=== PATIENT | female | born 1935 | race Caucasian/White ===

== ENCOUNTER 2017-06-12 07:33 | Inpatient (IN) ==
--- NOTE | 2017-06-11 21:27 | Discharge Summary ---
<Gayle Stewart - Last Filed: 06/12/17 11:22> Date of Encounter: 06/12/17 - Discharge Diagnosis (1) Arthritis of left hip Priority: Primary Status: Chronic (2) Status post total hip replacement, left Priority: Primary Status: Acute (3) Hypertension Status: Chronic Qualifiers: Hypertension type: unspecified secondary hypertension Qualified Code(s): I15.9 - Secondary hypertension, unspecified; I15 - Secondary hypertension (4) Hyperlipidemia Status: Chronic Qualifiers: Hyperlipidemia type: unspecified Qualified Code(s): E78.5 - Hyperlipidemia , unspecified (5) Diabetes type 2, controlled Status: Chronic Qualifiers: Diabetes mellitus complication status: with unspecified complications Diabetes mellitus terminal gauger insulin use: unspecified terminal gauger insulin use status Qualified Code(s): E11.8 - Type 2 diabetes mellitus with unspecified complications (6) Rheumatoid arthritis Status: Chronic Qualifiers: Rheumatoid arthritis location: unspecified site Rheumatoid factor presence : unspecified presence Qualified Code(s): M06.9 - Rheumatoid arthritis, unspecified (7) Obesity (BMI 30.0-34.9) Status: Chronic - Discharge Medications Home Medications: Aspirin Enteric Coated [Aspirin EC] 325 mg PO DAILY #21 tablet. 06/11/17 [Rx] OxyCODONE Immed Rel [Roxicodone 5 MG] 5 mg PO Q6HR PRN #28 tablet 06/11/17 [Rx] Cholecalciferol (D-3) [Vitamin D] 1,000 unit PO DAILY 06/12/17 [History] Cyanocobalamin (Vitamin B-12) [Vitamin B12] 1,000 mcg PO DAILY 06/12/17 [History ] GlipiZIDE [Glipizide ER] 10 mg PO DAILY 06/12/17 [History] Ibuprofen [Motrin] 400 mg PO Q6H PRN 06/12/17 [History] Losartan/HCTZ [Hyzaar 50-12.5 Tablet] 1 tab PO DAILY 06/12/17 [History] [place]-3/Dha/Epa/Fish Oil [Fish Oil 1,000 mg Softgel] 1 tab PO DAILY 06/12/17 [ History] Pyridoxine HCl [Vitamin B-6] 250 mg PO DAILY 06/12/17 [History] Allergies/Adverse Reactions: 3 Allergy/AdvReac Type Severity Reaction Status Date / Time acetaminophen [From Tylenol] Allergy Hives Verified 06/12/17 08:04 ezetimibe [From Zetia] Allergy Muscle Pain Verified 06/12/17 08:04 ibuprofen [From Advil] Allergy Hives Verified 06/12/17 08:04 Primary care physician: Niesha Brenner - Patient Status Disposition: Transfer Inpatient Rehab Fac Condition: Good - Discharge Instructions Instructions: Heart Block (GEN) Follow Up With: Jodie Posadas PAC [Physician Mobility Architect] - Олег Pulido MD [Partnered Physician] - Sawyer Ha DO [Primary Care Provider] - Additional Instructions: Discharge Instructions: Total Hip Replacement Please call [facility] ([phone]), your Primary Care Physician, or report to the Emergency Room if you have any of the following symptoms: Nausea, vomiting, fever greater that 101.5, swelling, chest pain, shortness of breath, increased pain/redness/drainage/odor for your incision site, numbness/ tingling, or any other concerning symptoms. ACTIVITY:Weight-bearing as tolerated for 8 weeks with hip dislocation precautions that physical therapy taught you. You may progress as tolerated under the guidance of your physical therapist. You do not need to sleep with a pillow between your legs. You can also seep on the operative side or on your stomach. MEDICATIONS: Upon discharge resume your home medications. Take all the medications as prescribed. Take a stool softener if taking narcotic pain medications. Stool softeners are only effective if you drink enough fluids. Drink 6-8 glass of water or fluids a day, unless this is not allowed for another health problem. Despite using stool softeners, if you haven't had a bowel movement in 3 days, please switch to a gentle laxative. Gentle laxatives are sold over the counter. You should have a bowel movement within 24 hours, if not call the office. You will be discharged from the hospital with a prescription for pain medication. You are encouraged to decrease the use of narcotic pain medication as tolerated. Should you require a refill, please call the office. [facility] prescribes narcotic pain medication for only 4-6 weeks after surgery. If you require pain medication beyond this time period, you may be referred to your Primary Care Physician or to the Pain Clinic for further evaluation. Plan ahead for refills on pain medication as many narcotics either need to be picked up at the office or mailed. It is best to call 48-72 hours in advance of needing a prescription refill so you don't run out of medication. To help control the post-operative pain, you may take NSAIDs (Aleve,Advil, Motrin, ibuprofen, naprosyn) or Tylenol as prescribed on the bottle in addition to the pain medication. ANTICOAGULATION (blood thinners): Continue your Aspirin, Lovenox or Coumadin as prescribed to help prevent a blood clot in the leg or in the lungs. As long as your incision remains dry and you tolerate the NSAIDs (Aleve, Advil, Motrin, Ibuprofen, Naprosyn), it is OK to use the NSAIDS while you are taking your anticoagulation medication. Should your incision start to drain, stop the NSAID and contact our office. Common symptoms of blood clot in the legs include: localized pain, swelling, calf tenderness, redness or discoloration of the skin. Blood clot in the lung symptoms include: shortness of breath, rapid pulse, sweating, and chest pain that worsens with deep breathing, coughing up blood, lightheadedness, feelings of anxiety. If you experience any of these symptoms notify your physician immediately, go to the emergency room, or if having trouble breathing, call 911. WOUND CARE: Leave the dressing on for 7 to 10days. You may change the dressing if it is saturated greater than 50%. Do not get the dressing wet at anytime. Wash your hands with antibacterial soap, rinse and dry prior to any wound care. If you have felton the visiting nurse or rehab facility can remove the stapes 10-14 days after surgery and place steri-strips across the wound. Leave the steri-strips in place until they fall off on their own. You may let water from the shower run on top of the steri-strips. If you do not have a visiting nurse or rehab facility, you will need to return to the office at 10-14 days for the felton to be removed. If you have itching or redness around the dressing call the office. FOLLOW-UP: Please follow up with your surgeon in the orthopedic clinic in 6 weeks from the day of surgery. If you have felton that need to be removed, you will need to come back to the office in 10-14 days from the day of surgery. - Hospital Course Hospital course: Ms. Glover is a 82 year old female - Time Spent with Patient Total time spent providing and/or coordinating discharge services: <Олег Pulido - Last Filed: 06/14/17 08:44> Date of Encounter: 06/14/17 Time of Encounter: 08:43 - Discharge Diagnosis (1) Arthritis of left hip Priority: Primary Status: Chronic (2) Status post total hip replacement, left Priority: Primary Status: Acute (3) Hypertension Priority: Secondary Status: Chronic Qualifiers: Hypertension type: unspecified secondary hypertension Qualified Code(s): I15.9 - Secondary hypertension, unspecified; I15 - Secondary hypertension (4) Hyperlipidemia Priority: Secondary Status: Chronic Qualifiers: Hyperlipidemia type: unspecified Qualified Code(s): E78.5 - Hyperlipidemia , unspecified (5) Diabetes type 2, controlled Priority: Secondary Status: Chronic Qualifiers: Diabetes mellitus complication status: with unspecified complications Diabetes mellitus terminal gauger insulin use: unspecified long-term insulin use status Qualified Code(s): E11.8 - Type 2 diabetes mellitus with unspecified complications (6) Rheumatoid arthritis Priority: Secondary Status: Chronic Qualifiers: Rheumatoid arthritis location: unspecified site Rheumatoid factor presence : unspecified presence Qualified Code(s): M06.9 - Rheumatoid arthritis, unspecified (7) Obesity (BMI 30.0-34.9) Priority: Secondary Status: Chronic (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 Glover is a 82 year old female Status post left total hip replacement patient with postoperative symptoms evaluated by cardiology diagnosed with rate control bundle kallie block. Echo normal further workup necessary The patient had an uneventful postoperative course. They received antibiotics and physical therapy and were discharged in stable condition. There will follow -up in the office in 2 weeks. - Time Spent with Patient Total time spent providing and/or coordinating discharge services:
[2017-06-12] MEDS ORDERED: CeFAZolin Syr 2,000MG/20 ML 2,000 MG/20 ML SYRINGE IVPB ONE (08:06)
[2017-06-12] MEDS ORDERED: Lidocaine -MPF 1% 2 ML VIAL ID ONE (08:06)
--- NOTE | 2017-06-12 08:11 | Anesthesia Evaluation PreOp ---
Date of Encounter: 06/12/17 Time of Encounter: 08:09 - Past History Planned Operation: Robotic Total hip Arthroplasty Cardiac History: HTN, Hyperlipidemia Pulmonary History: Denies Any Significant HX CARE CLINICIAN History: Denies Any Significant HX Other Medical History: Renal (Stones), Diabetes Type II, Other (RA) Anesthesia History: Past Anesthesia (LUISA, teeth extractions), Problems (slow to wake up 36 years ago) : No Alcohol Use: none Drug use: none Medications and Allergies Aspirin Enteric Coated [Aspirin EC] 325 mg PO DAILY #21 tablet.dr 06/11/17 [Rx] OxyCODONE Immed Rel [Roxicodone 5 MG] 5 mg PO Q6HR PRN #28 tablet 06/11/17 [Rx] Cholecalciferol (D-3) [Vitamin D] 1,000 unit PO DAILY 06/12/17 [History] Cyanocobalamin (Vitamin B-12) [Vitamin B12] 1,000 mcg PO DAILY 06/12/17 [History ] GlipiZIDE [Glipizide ER] 10 mg PO DAILY 06/12/17 [History] Ibuprofen [Motrin] 400 mg PO Q6H PRN 06/12/17 [History] Losartan/HCTZ [Hyzaar 50-12.5 Tablet] 1 tab PO DAILY 06/12/17 [History] [place]-3/Dha/Epa/Fish Oil [Fish Oil 1,000 mg Softgel] 1 tab PO DAILY 06/12/17 [ History] Pyridoxine HCl [Vitamin B-6] 250 mg PO DAILY 06/12/17 [History] 3 Allergy/AdvReac Type Severity Reaction Status Date / Time acetaminophen [From Tylenol] Allergy Hives Verified 06/12/17 08:04 ezetimibe [From Zetia] Allergy Muscle Pain Verified 06/12/17 08:04 ibuprofen [From Advil] Allergy Hives Verified 06/12/17 08:04 - Meds/Allergy Pre-op Review Medications Reviewed: Yes Allergies Reviewed: Yes Beta Blockers on Current Med List: No Anesthesia Results - Labs Laboratory Tests 05/24/17 05/24/17 05/24/17 15:12 15:12 15:12 WBC 8.6 Hgb 14.4 Hct 42.3 Plt Count 280 INR 1.0 Sodium 140 Potassium 3.8 Chloride 105 Carbon Dioxide 25 BUN 16 Creatinine 0.94 - Imaging EKG: report reviewed (SINUS RHYTHM WITH OCCASIONAL SUPRAVENTRICULAR PREMATURE COMPLEXES LEFT VENTRICULAR HYPERTROPHY AND ST-T CHANGE) Anesthesia Exam O2 Sat Height 1.57 m Height 1.57 m Weight 83.461 kg Weight 83.461 kg O2 Sat by Pulse Oximetry 96 Vital Signs Temp Pulse Resp BP Pulse Ox 98.0 F 91 18 133/68 96 06/12/17 08:01 06/12/17 08:01 06/12/17 08:01 06/12/17 08:01 06/12/17 08:01 Height: 5'2'' Weight: 184# NPO (# of Hours): > 8 hrs Pain Scale: 0 Pain Scale Used: Numeric (1 - 10) - HEENT Pupil (Motor): Pupils equal, EOMI Mallampati: I Teeth: Normal Oral Opening: Greater than 3 - CARE CLINICIAN LOC: Oriented CARE CLINICIAN Motor: Normal RUE, Normal LUE, Normal RLE, Normal LLE, Normal Face CARE CLINICIAN Sensory: Normal: RUE, LUE, RLE, LLE, Face - Cardiac Rhythm: Regular Murmur: None JVD: No Carotid Bruit: No - Pulmonary Breath Sounds: bilateral Clear Respiratory Effort: Symmetrical Anesthesia Assess/Plan ASA Score: 2 Modified [place] Scale for Level of Consciousness: Cooperative, oriented, and tranquil Anesthetic Plan: General Autologous Blood: Yes Monitoring Plan: Standard Monitors Recovery Plan: PACU
[2017-06-12] MEDS ORDERED: Plasma-Lyte A (PH 7.4) 1,000 ML IVC SCH (08:15)
--- NOTE | 2017-06-12 08:46 | History & Physical Report ---
Date of Encounter: 06/12/17 Time of Encounter: 08:46 24 Hour HP Update - Instructions Instructions: If the History and Physical is less than 30 days old and was completed prior to A.M. admission and or procedure and has NOT been updated on calendar day of procedure please complete this update prior to performing procedure. - Update Patient reports changes in Medical Condition: No Changes in examination, assessment, or condition: No Changes in Medication: No Preop tests/diagnostics Reviewed: Yes Surgery Remains Indicated: Yes Consent for Planned Operative Procedure(s) Verified: Yes - Pre-Operative Checklist Preoperative Checklist Indicated: No Prophylactic Antibiotic Ordered: Yes Is VTE Prophylaxis Indicated?: Yes
[2017-06-12] MEDS ORDERED: Ethanol\\Acetic Acid\\Na Ace\\Ben 1,000 ML IRRIG.SOLN IR ONE (09:13)
[2017-06-12] MEDS ORDERED: *HR* Succinylcholine 200 MG/10 ML VIAL IVP ONE (11:30)
[2017-06-12] MEDS ORDERED: *HR* Rocuronium Bromide 50 MG/5 ML VIAL ONE (11:30)
[2017-06-12] MEDS ORDERED: EPHEDrine 50 MG/ML VIAL ONE (11:30)
[2017-06-12] MEDS ORDERED: *HR* FentaNYL (PF) 100 MCG/2 ML VIAL ONE (11:30)
[2017-06-12] MEDS ORDERED: *HR* Propofol 200 MG/20 ML VIAL IVP ONE (11:30)
[2017-06-12] MEDS ORDERED: Lidocaine -MPF 2% 2 ML VIAL ONE (11:30)
[2017-06-12] MEDS ORDERED: Ondansetron 4 MG/2 ML VIAL ONE ×2 (11:31→14:52)
[2017-06-12] MEDS ORDERED: *HR* Morphine 10 MG/ML VIAL ONE (11:58)
--- NOTE | 2017-06-12 12:01 | Orthopedic Operative Note ---
Date of procedure: 06/12/17 Pre-op diagnosis: Left hip arthritis Post-op diagnosis: same Procedure: Procedure: Left Total Hip Replacment Estimated blood loss: 300 cc Hardware: Metal and polyethylene replacement. [place] DM Cup: 52 cup Femoral size 8 stem Head: 0 head with Darling Procedural Notes: Grade 4 arthritic changes femoral head acetabular socket, procedure performed with robotic assistance in the beginning, fiberoptic visualization was lost before reaming the acetabulum.. Operative procedure: The patient was brought to the operating room and placed on the operating room table. After general anesthesia was administered the patient was placed in the lateral decubitus position with the operative leg up. All pressure points were padded appropriately and the head was stabilized in the neutral position. The operative extremity was prepped and draped in the sterile surgical fashion patient received IV antibiotic prior to skin incision. 3 Steinmann pins were placed in the iliac crest 3 cm proximal to the anterior superior iliac spine this was for the robotic-assisted sensor. This was done through a small 2 cm incision. A standard posterior approach is made to the operative hip, the incision was made through the skin and subcutaneous tissue hemostasis was obtained with Bovie cautery. Using careful sharp dissection the fascia was identified and incised exposing the external rotators. The femoral checkpoint was placed leg length was measured at this time utilizing robotic assistance, 11 mm shorter on operative side. The external rotators were released off the greater trochanter and tagged with #2 FiberWire suture. The capsule was T'd open and the hip was brought into internal rotation. Patient noted to have grade 4 arthritic changes femoral head. The femoral neck cut was made at the appropriate level roughly 17 mm proximal to the lesser trochanter aced on preoperative templating. An anterior capsulotomy was performed for the anterior retractor. Soft tissues removed from the acetabulum. Patient noted to have grade 4 arthritic changes acetabulum. The acetabulum checkpoint was placed confirmed. The acetabulum was then mapped with robotic assistance. Based on the preoperative plan the acetabulum at this point fiberoptic visualization was lost from the robot due to technical error, the acetabular was reamed medially with a 43 then in 15 degrees of anteversion and 45 degrees off horizontal to a size 52. A 52 cup was implanted in place in 45 degrees off the horizontal and 15 degrees of anteversion and this had excellent fixation. The hip was brought back in to internal rotation and prepared with the box closing machine operator followed by the canal finder followed by the reaming process to a size X broaching process in 20 degrees anteversion. It was broached up to the appropriate size 8. Trial reduction revealed leg lengths close to normal. The femoral implant was impacted in place in 20 degrees of anteversion. Trial reduction found the hip to be stable with 0 head and Darling. The trials were removed and the real implants were impacted in place. The hip was reduced. The hip had excellent stability with forward flexion to 90 degrees adduction of 30 degrees and internal rotation of 60 degrees. The hip had no shuck. The hips after 2 minutes with a Betadine saline solution. It was irrigated out with 2 L of pulse irrigation. The checkpoints were removed, Steinmann pins were removed. The deep incision and of the hip were closed by the PA. The deep tissue was irrigated and closed deep with #1 PDS suture superficially with 0 PDS suture and skin was closed with Dermabond and zip tie. The patient was placed in a sterile dressing and abduction pillow. The patient was extubated and transferred to the recovery room in stable condition. Anesthesia: GETA Surgeon: Олег Pulido Condition: stable Disposition: PACU
[2017-06-12] MEDS ORDERED: Ondansetron 4 MG/2 ML VIAL IVP PRN ×2 (12:41→14:45)
[2017-06-12] MEDS ORDERED: *HR* HYDROmorphone (PF) 1 MG/ML SYRINGE ONE (12:42)
[2017-06-12] MEDS: *HR* HYDROmorphone (PF) 1 MG/ML SYRINGE IVP PRN ×3 (12:43→13:01)
[2017-06-12 12:52] LABS: Hemoglobin 11.2 g/dL (11.5-15.4)
[2017-06-12] MEDS ORDERED: *HR* Morphine 2 MG/ML SYRINGE ONE (13:57)
--- NOTE | 2017-06-12 14:11 | Anesthesia Evaluation Post Op ---
Date of Encounter: 06/12/17 Time of Encounter: 14:10 - Vital Signs Vital Signs: Vital Signs/O2 Sat, Most Current Temp Pulse Resp BP Pulse Ox 98 F 71 12 119/61 100 06/12/17 14:05 06/12/17 14:05 06/12/17 14:05 06/12/17 14:05 06/12/17 14:05 - Lungs Lungs: Clear Ascult./Percussion - Airway Airway: Non-obstructed - Cardiovascular Regular Rate - Mental Status Mental Status: Alert & Oriented, Answers Appropriately - Pain Pain Scale: 6 (sleeping) Pain Scale used: Numeric (1 - 10) - Nausea Vomiting Nausea Vomiting: Not Present - Hydration Hydration: Ice chips, Has not voided - Discharge PostOp Status: Transfer Patient to floor
--- NOTE | 2017-06-12 14:20 | Cardiology Consult Note ---
<RamonitaLvy R - Last Filed: 06/12/17 14:17> Date of Encounter: 06/12/17 Time of Encounter: 14:18 Assessment and Plan (1) Rate-dependent bundle branch block Current Visit: Yes Status: Acute Explanation for differing complexes on telemetry is rate dependent LBBB s/p hip replacement. Pt denies cardiac hx or any current cardiac symptoms. Risk factors include HTN, HLD, DM. Recommend checking troponin x 3 and an echo to evaluate structure and function. If no significant findings, no further cardiac work-up will be warranted. Will continue to follow. Discussion w patient/family: The assessment and plan as outlined above was discussed with the patient and/or family members who expressed understanding and agreement. All questions were answered. Thank you for involving us in the care of your patient. Please call with any questions. I will discuss all the above with Dr. Adams and make changes as necessary. History of Present Illness Consult date: 06/12/17 Requesting physician: Roscoe Ramirez Consult reason: telemetry/ekg changes Chief complaint: none History of present illness: Ms. Glover is a 82 year old female with PMH of HTN, HLD, DM that is post op from left hip replacement today. Changes were noted on telemetry/EKG and cardiology was asked to assess the pt. She is currently A&O x 1 due to still being somewhat sedated. However, she denies any cardiac history or currently symptoms of chest pain or dyspnea. EKG/telemetry shows rate dependent LBBB. No previous cardiac testing on file aside from EKG. Past Med Surg Social Fam HX - Past Medical History Medical history: diabetes, hyperlipidemia, hypertension Psychiatric history: no psych history - Social History Smoking Status: Never smoker Smokeless Tobacco Status: No Alcohol use: none Drug use: none Medications and Allergies Aspirin Enteric Coated [Aspirin EC] 325 mg PO DAILY #21 tablet. 06/11/17 [Rx] OxyCODONE Immed Rel [Roxicodone 5 MG] 5 mg PO Q6HR PRN #28 tablet 06/11/17 [Rx] Cholecalciferol (D-3) [Vitamin D] 1,000 unit PO DAILY 06/12/17 [History] Cyanocobalamin (Vitamin B-12) [Vitamin B12] 1,000 mcg PO DAILY 06/12/17 [History ] GlipiZIDE [Glipizide ER] 10 mg PO DAILY 06/12/17 [History] Ibuprofen [Motrin] 400 mg PO Q6H PRN 06/12/17 [History] Losartan/HCTZ [Hyzaar 50-12.5 Tablet] 1 tab PO DAILY 06/12/17 [History] [place]-3/Dha/Epa/Fish Oil [Fish Oil 1,000 mg Softgel] 1 tab PO DAILY 06/12/17 [ History] Pyridoxine HCl [Vitamin B-6] 250 mg PO DAILY 06/12/17 [History] 3 Allergy/AdvReac Type Severity Reaction Status Date / Time acetaminophen [From Tylenol] Allergy Hives Verified 06/12/17 08:04 ezetimibe [From Zetia] Allergy Muscle Pain Verified 06/12/17 08:04 ibuprofen [From Advil] Allergy Hives Verified 06/12/17 08:04 All Systems Review: A 10-system review of systems was performed and is negative for pertinent findings except as documented above in the HPI. - Cardiovascular Cardiovascular: as per HPI Physical Examination Vital Signs, Last 4 Hours Temp Pulse Resp BP Pulse Ox 06/12/17 14:15 66 12 133/64 100 06/12/17 14:05 98 F 71 12 119/61 100 06/12/17 13:55 69 12 131/68 100 06/12/17 13:45 85 12 126/72 99 06/12/17 13:35 97.2 F L 82 10 129/71 99 06/12/17 13:25 65 10 126/66 94 06/12/17 13:15 77 10 128/74 94 06/12/17 13:05 97.1 F L 59 12 108/64 93 06/12/17 12:55 62 16 129/72 98 06/12/17 12:45 70 16 121/62 97 06/12/17 12:35 98.5 F 73 16 117/65 98 Vital Signs Temp Pulse Resp BP Pulse Ox 06/12/17 14:15 66 12 133/64 100 06/12/17 14:05 98 F 71 12 119/61 100 06/12/17 13:55 69 12 131/68 100 06/12/17 13:45 85 12 126/72 99 06/12/17 13:35 97.2 F L 82 10 129/71 99 06/12/17 13:25 65 10 126/66 94 06/12/17 13:15 77 10 128/74 94 06/12/17 13:05 97.1 F L 59 12 108/64 93 06/12/17 12:55 62 16 129/72 98 06/12/17 12:45 70 16 121/62 97 06/12/17 12:35 98.5 F 73 16 117/65 98 06/12/17 08:01 98.0 F 91 18 133/68 96 Intake and Output 06/11/17 06/12/17 06/12/17 23:59 07:59 15:59 Output Total 300 / 300 Balance -300 / -300 Output: Estimated Blood Loss 300 / 300 Other: Weight 83.461 kg 83.461 kg Blood Glucose* 190 Patient Weight 06/12/17 23:59 Weight 83.461 kg General: No Apparent Distress HEENT: Atraumatic, Normocephaly, Mucus Membranes Moist Neck: No JVD, Normal carotid pulses Cardiac: Reg Rate and Rhythm, Normal S1 and S2, No Murmur Lungs: Normal Breath Sounds, No Wheeze, Rales, Rhonchi Neuro: Other (still sedated) Abdomen: Soft, Non-Tender Skin: No rashes noted on visualized skin Musculoskeletal: No Chest Wall Tenderness Extremities: No Clubbing, No Cyanosis, No Edema, Normal Pulses Results 06/12/17 12:42 Lab Results 06/12/17 06/12/17 07:59 12:42 Hgb 11.2 L Hct 34.0 L POC Glucose 178 H Short CBC 06/12/17 Range/Units 12:42 Hgb 11.2 L (11.5-15.4) g/dL Hct 34.0 L (35.3-44.9) % Active Medications Enoxaparin Sodium (Lovenox) 30 mg SQ Q12HR LUIZ PRN Reason: Protocol Stop: 12/12/17 18:01 Hydromorphone HCl (Dilaudid) 0.5 mg IVP Q10MIN PRN; Protocol PRN Reason: Pain Stop: 12/12/17 12:42 Last Admin: 06/12/17 13:01 Dose: 0.5 mg Parenteral Electrolytes (Plasma-Lyte A (Ph 7.4)) 1,000 mls @ 25 mls/hr IVC .Q24H LUIZ Stop: 12/12/17 08:16 Last Admin: 06/12/17 08:28 Dose: 25 mls/hr Ondansetron HCl (Zofran) 4 mg IVP ONCE PRN PRN Reason: Nausea And Vomiting Stop: 12/12/17 12:42 - EKG Interpretation EKG results cardiology: personally reviewed (rate dependent LBBB) Consult Discharge Plan - Plan Instructions: Heart Block (GEN) Additional Instructions: Discharge Instructions: Total Hip Replacement Please call [facility] ([phone]), your Primary Care Physician, or report to the Emergency Room if you have any of the following symptoms: Nausea, vomiting, fever greater that 101.5, swelling, chest pain, shortness of breath, increased pain/redness/drainage/odor for your incision site, numbness/ tingling, or any other concerning symptoms. ACTIVITY:Weight-bearing as tolerated for 8 weeks with hip dislocation precautions that physical therapy taught you. You may progress as tolerated under the guidance of your physical therapist. You do not need to sleep with a pillow between your legs. You can also seep on the operative side or on your stomach. MEDICATIONS: Upon discharge resume your home medications. Take all the medications as prescribed. Take a stool softener if taking narcotic pain medications. Stool softeners are only effective if you drink enough fluids. Drink 6-8 glass of water or fluids a day, unless this is not allowed for another health problem. Despite using stool softeners, if you haven't had a bowel movement in 3 days, please switch to a gentle laxative. Gentle laxatives are sold over the counter. You should have a bowel movement within 24 hours, if not call the office. You will be discharged from the hospital with a prescription for pain medication. You are encouraged to decrease the use of narcotic pain medication as tolerated. Should you require a refill, please call the office. [facility] prescribes narcotic pain medication for only 4-6 weeks after surgery. If you require pain medication beyond this time period, you may be referred to your Primary Care Physician or to the Pain Clinic for further evaluation. Plan ahead for refills on pain medication as many narcotics either need to be picked up at the office or mailed. It is best to call 48-72 hours in advance of needing a prescription refill so you don't run out of medication. To help control the post-operative pain, you may take NSAIDs (Aleve,Advil, Motrin, ibuprofen, naprosyn) or Tylenol as prescribed on the bottle in addition to the pain medication. ANTICOAGULATION (blood thinners): Continue your Aspirin, Lovenox or Coumadin as prescribed to help prevent a blood clot in the leg or in the lungs. As long as your incision remains dry and you tolerate the NSAIDs (Aleve, Advil, Motrin, Ibuprofen, Naprosyn), it is OK to use the NSAIDS while you are taking your anticoagulation medication. Should your incision start to drain, stop the NSAID and contact our office. Common symptoms of blood clot in the legs include: localized pain, swelling, calf tenderness, redness or discoloration of the skin. Blood clot in the lung symptoms include: shortness of breath, rapid pulse, sweating, and chest pain that worsens with deep breathing, coughing up blood, lightheadedness, feelings of anxiety. If you experience any of these symptoms notify your physician immediately, go to the emergency room, or if having trouble breathing, call 911. WOUND CARE: Leave the dressing on for 7 to 10days. You may change the dressing if it is saturated greater than 50%. Do not get the dressing wet at anytime. Wash your hands with antibacterial soap, rinse and dry prior to any wound care. If you have felton the visiting nurse or rehab facility can remove the stapes 10-14 days after surgery and place steri-strips across the wound. Leave the steri-strips in place until they fall off on their own. You may let water from the shower run on top of the steri-strips. If you do not have a visiting nurse or rehab facility, you will need to return to the office at 10-14 days for the felton to be removed. If you have itching or redness around the dressing call the office. FOLLOW-UP: Please follow up with your surgeon in the orthopedic clinic in 6 weeks from the day of surgery. If you have felton that need to be removed, you will need to come back to the office in 10-14 days from the day of surgery. Referrals: Jodie Posadas PAC [Physician Provider Contracting Consultant] - Олег Pulido MD [Partnered Physician] - Sawyer Ha DO [Primary Care Provider] - <Rambo Adams - Last Filed: 06/13/17 23:22> Date of Encounter: 06/13/17 - Attending Attestation I have personally performed a face to face evaluation on this patient. I have reviewed and agree with the care plan. History and Exam by me shows: IMP/Plan 1. Rate dependent bundle branch block, asymptomatic, pt denies chest pain, pressure or shortness of breath, still moderately sedated, blood pressure and heart rate stable, will obtain echo, sequential troponins, however no acute changes on EKG at present, will continue to monitor, no intervention required at present. Final recommendations pending serial enzemes and cardiac imagining. 2. Osteoarthitis left hip, status post left hip replacement, pt evaluated in PACU. Assessment and Plan Discussion w patient/family: The assessment and plan as outlined above was discussed with the patient and/or family members who expressed understanding and agreement. All questions were answered. Thank you for involving us in the care of your patient. Please call with any questions. History of Present Illness History of present illness: Ms. Glover is a 82 year old female All Systems Review: A 10-system review of systems was performed and is negative for pertinent findings except as documented above in the HPI. Physical Examination Vital Signs, Last 4 Hours Temp Pulse Resp BP Pulse Ox 06/13/17 19:20 98.8 F 79 17 108/68 98 Results 06/13/17 03:17 06/13/17 03:17 Lab Results 06/13/17 06/13/17 03:17 03:17 Hgb 11.2 L Hct 34.7 L Sodium 139 Potassium 4.0 Chloride 102 Carbon Dioxide 29 BUN 16 Creatinine 0.82 Glucose 202 H Calcium 8.5 L
[2017-06-12 14:28] LABS: Alanine Aminotransferase 16 Units/L (0-55); Albumin 3.4 g/dL (3.5-5.0); Albumin/Globulin Ratio 1.3 (1.1-2.2); Alkaline Phosphatase 73 Units/L (38-126); Aspartate Amino Transferase 16 Units/L (5-34); BUN/Creatinine Ratio 16 (6-26); Bilirubin,Total 0.8 mg/dL (0.2-1.2); Blood Urea Nitrogen 13 mg/dL (7-20); Calcium 8.7 mg/dL (8.6-10.8); Carbon Dioxide 25 mEq/L (19-29); Chloride 104 mEq/L (98-109); Globulin 2.7 g/dL (2.4-3.5); Glucose 240 mg/dL (70-99); Osmolality,Calculated 294 (280-300); Potassium 3.6 mEq/L (3.5-4.5); Sodium 138 mEq/L (136-145); Total Protein 6.1 g/dL (6.0-8.3); eGFR For African Americans > 60 (> 60); eGFR For Non-African Americans > 60 (> 60)
[2017-06-12] MEDS ORDERED: Dextrose Gel 15 GM PO PRN ×2 (14:45)
[2017-06-12] MEDS ORDERED: Sennosides 8.6 MG TABLET PO PRN (14:45)
[2017-06-12] MEDS ORDERED: *HR* OxyCODONE Immed Rel 5 MG TABLET PO PRN (14:45)
[2017-06-12] MEDS ORDERED: MOM Conc 10 ML UD.LIQ PO PRN (14:45)
[2017-06-12] MEDS ORDERED: *HR* Dextrose 50 % in Water (Syg) 50 ML SYRINGE IVP PRN (14:45)
[2017-06-12] MEDS ORDERED: D5% in Water 1,000 ML IVC PRN (14:45)
[2017-06-12] MEDS ORDERED: Temazepam 15 MG CAPSULE PO PRN (14:45)
[2017-06-12] MEDS ORDERED: *HR* HYDROmorphone (PF) 1 MG/ML SYRINGE IVP PRN (14:45)
[2017-06-12] MEDS ORDERED: Naloxone 0.4 MG/ML INJ IVP PRN (14:45)
[2017-06-12] MEDS: Ringers Solution, Lactated 1,000 ML IVC SCH (15:32)
[2017-06-12] MEDS: CeFAZolin Premix DUPLEX 2,000 MG/50 ML BAG IVPB SCH (15:33)
--- NOTE | 2017-06-12 15:43 | Electrocardiograph Report ---
[address] [place], [place] [address] Test Date: 2017-06-12 Pat Name: Tisha Glover Department: 101 Room: [facility] Gender: F Vp: MARION : 1935 Requested By: Roscoe Ramirez Order Number: [id number] Reading MD: Roscoe Tapia Measurements Intervals [place] Rate: 79 P: 58 NV: 194 QRS: 10 QRSD: 150 T: 53 QT: 431 QTc: 466 Interpretive Statements SINUS RHYTHM LEFT BUNDLE BRANCH BLOCK Electronically Signed On 06-12-2017 15:41:59 EST by Roscoe Tapia
--- NOTE | 2017-06-12 15:43 | Electrocardiograph Report ---
[address] [place], [place] [address] Test Date: 2017-06-12 Pat Name: Tisha Glover Department: 101 Room: [facility] Gender: [employer] P[employer] Inspector: MARION : 1935 Requested By: Roscoe Ramirez Order Number: [id number] Reading MD: Roscoe Tapia Measurements Intervals [place] Rate: 83 P: 34 IA: 176 QRS: -1 QRSD: 148 T: 140 QT: 446 QTc: 486 Interpretive Statements SINUS RHYTHM WITH OCCASIONAL ECTOPIC PREMATURE COMPLEXES LEFT BUNDLE BRANCH BLOCK Electronically Signed On 06-12-2017 15:42:07 EST by Roscoe Tapia
--- NOTE | 2017-06-12 15:53 | Physician Discharge Referral ---
Home Health/Hosp Referral Info Transfer to: Home Health Attending Provider: Provider in Charge Post Discharge: PCP - Diagnosis (1) Arthritis of left hip Priority: Primary Status: Chronic (2) Status post total hip replacement, left Priority: Primary Status: Acute (3) Hypertension Priority: Secondary Status: Chronic (4) Hyperlipidemia Priority: Secondary Status: Chronic (5) Diabetes type 2, controlled Priority: Secondary Status: Chronic (6) Rheumatoid arthritis Priority: Secondary Status: Chronic (7) Obesity (BMI 30.0-34.9) Status: Chronic (8) Rate-dependent bundle branch block Priority: Secondary Status: Chronic - Respiratory Orders None Smoking Cessation: Smoking cessation has been advised. For more information, call the [employer] Tobacco Quit Line at 9-051-MHSG-NOW. - Diet/Nutrition Diet/Nutrition Orders: Regular - Activity Activity Orders: Up ad juliet, Ambulate, Chair - Services Needed Following services are medically necessary services: Nursing, Home Health Aide, Physical Therapy, Occupational Therapy Other Treatments: Left THR - Robotic Opsite dressing, leave intact until first post-operative visit. If dressing becomes >50% saturated, contact office, remove dressing and place appropriate dressing in its place. Do not allow for dressing to get wet. Zipline dressing in place, plan to remove at POD#14-16. PT: Total Joint Precautions x 6 weeks Apply ICE/cold therapy wrap 3-6x/day for 20 minutes at a time. Encourage ambulation throughout the day and incentive spirometer 10x/hour. Elevate affected extremity above heart as tolerated. Brace: Hip ABD brace at night x 6 weeks. - Transfer Medications Home Medications: Aspirin Enteric Coated [Aspirin EC] 325 mg PO DAILY #21 tablet. 06/11/17 [Rx] OxyCODONE Immed Rel [Roxicodone 5 MG] 5 mg PO Q6HR PRN #28 tablet 06/11/17 [Rx] Cholecalciferol (D-3) [Vitamin D] 1,000 unit PO DAILY 06/12/17 [History] Cyanocobalamin (Vitamin B-12) [Vitamin B12] 1,000 mcg PO DAILY 06/12/17 [History ] GlipiZIDE [Glipizide ER] 10 mg PO DAILY 06/12/17 [History] Ibuprofen [Motrin] 400 mg PO Q6H PRN 06/12/17 [History] Losartan/HCTZ [Hyzaar 50-12.5 Tablet] 1 tab PO DAILY 06/12/17 [History] [place]-3/Dha/Epa/Fish Oil [Fish Oil 1,000 mg Softgel] 1 tab PO DAILY 06/12/17 [ History] Pyridoxine HCl [Vitamin B-6] 250 mg PO DAILY 06/12/17 [History] Allergies/Adverse Reactions: 3 Allergy/AdvReac Type Severity Reaction Status Date / Time acetaminophen [From Tylenol] Allergy Hives Verified 06/12/17 08:04 ezetimibe [From Zetia] Allergy Muscle Pain Verified 06/12/17 08:04 ibuprofen [From Advil] Allergy Hives Verified 06/12/17 08:04 Certification: Further, I certify that my clinical findings support that this patient is homebound (i.e. absences from home require considerable and taxing effort and are for medical reasons or bahai services or infrequently or short duration when for other reasons) because: Homebound Reason: Post-surgery restriction and or conditions limit ability to leave home Attestation: My signature below is to certify that this patient is under my care and that I, or nurse practitioner, or a physician's bakery assistant working with me, has a face-to -face encounter with this patient.
[2017-06-12] MEDS: Insulin LISPRO 300 UNITS/3 ML VIAL SQ SCH ×3 (16:45→21:14)
[2017-06-12] MEDS ORDERED: Scopolamine Patch 1.5 MG PATCH.TD72 TD ONE (16:46)
[2017-06-12] MEDS: Fish Oil 1,000 Mg Softgel PO SCH (16:46)
[2017-06-12] MEDS ORDERED: *HR* Enoxaparin 30 MG/0.3 ML SYRINGE SQ SCH (18:00)
[2017-06-12] MEDS: Losartan/HCTZ 50-12.5 TABLET PO SCH (18:20)
[2017-06-12] MEDS: *HR* GlipiZIDE XL (24 HR) 10 MG TABLET PO SCH (18:20)
[2017-06-12] MEDS: Pyridoxine (B-6) 50 MG TABLET PO SCH (18:21)
[2017-06-12] MEDS: Cyanocobalamin (B-12) 1,000 MCG TABLET PO SCH (18:21)
[2017-06-12] MEDS: Multivit/Ca/Min/Fe/FA 1 TAB TABLET PO SCH (18:21)
[2017-06-12] MEDS: Cholecalciferol (D-3) 1,000 UNIT TABLET PO SCH (18:22)
[2017-06-12] MEDS: Ascorbic Acid 500 MG TABLET PO SCH (18:24)
[2017-06-12] MEDS: *HR* Enoxaparin 30 MG/0.3 ML SYRINGE SQ SCH (18:39)
[2017-06-13] MEDS: CeFAZolin Premix DUPLEX 2,000 MG/50 ML BAG IVPB SCH (00:19)
[2017-06-13 04:20] LABS: Hematocrit 34.7 % (35.3-44.9); Hemoglobin 11.2 g/dL (11.5-15.4)
[2017-06-13 04:24] LABS: BUN/Creatinine Ratio 20 (6-26); Blood Urea Nitrogen 16 mg/dL (7-20); Calcium 8.5 mg/dL (8.6-10.8); Carbon Dioxide 29 mEq/L (19-29); Chloride 102 mEq/L (98-109); Glucose 202 mg/dL (70-99); Osmolality,Calculated 295 (280-300); Sodium 139 mEq/L (136-145); eGFR For African Americans > 60 (> 60); eGFR For Non-African Americans > 60 (> 60)
[2017-06-13] MEDS: *HR* Enoxaparin 30 MG/0.3 ML SYRINGE SQ SCH ×2 (05:13→18:15)
[2017-06-13] MEDS: *HR* OxyCODONE Immed Rel 5 MG TABLET PO PRN ×4 (05:13→23:21)
[2017-06-13] MEDS: Ringers Solution, Lactated 1,000 ML IVC SCH ×2 (05:15→18:53)
--- NOTE | 2017-06-13 06:55 | Orthopedics Progress Note ---
Date of Encounter: 06/13/17 Time of Encounter: 06:54 - Assessment and Plan (1) Arthritis of left hip Current Visit: No Status: Chronic (2) Status post total hip replacement, left Current Visit: No Status: Acute (3) Hypertension Current Visit: Yes Status: Chronic Qualifiers: Hypertension type: unspecified secondary hypertension Qualified Code(s): I15.9 - Secondary hypertension, unspecified; I15 - Secondary hypertension (4) Hyperlipidemia Current Visit: Yes Status: Chronic Qualifiers: Hyperlipidemia type: unspecified Qualified Code(s): E78.5 - Hyperlipidemia , unspecified (5) Diabetes type 2, controlled Current Visit: Yes Status: Chronic Qualifiers: Diabetes mellitus complication status: with unspecified complications Diabetes mellitus moth exterminator insulin use: unspecified moth exterminator insulin use status Qualified Code(s): E11.8 - Type 2 diabetes mellitus with unspecified complications (6) Rheumatoid arthritis Current Visit: Yes Status: Chronic Qualifiers: Rheumatoid arthritis location: unspecified site Rheumatoid factor presence : unspecified presence Qualified Code(s): M06.9 - Rheumatoid arthritis, unspecified (7) Obesity (BMI 30.0-34.9) Current Visit: Yes Status: Chronic (8) Rate-dependent bundle branch block Current Visit: Yes Status: Acute Subjective Interval history: Patient was seen this morning doing well without complaints. Afebrile vital signs stable. Operative extremity: Neurovascularly intact Dressing clean dry and intact Calves nontender Assessment and plan: Continue with postoperative care Hematocrit 34, cardiology consult appreciated patient doing well Objective Vital signs: Vital Signs Temp Pulse Resp BP Pulse Ox 06/13/17 06:28 98.5 F 73 18 105/63 93 06/13/17 05:23 75 111/68 06/13/17 04:18 98.3 F 76 16 99/56 96 06/13/17 00:07 98.0 F 88 16 132/74 94 06/12/17 20:30 98.3 F 85 18 111/60 96 06/12/17 18:57 97.8 F 80 16 98/63 100 06/12/17 17:00 97.5 F L 90 10 97/53 97 06/12/17 15:45 90 12 102/69 100 06/12/17 15:15 97.5 F L 90 10 116/73 99 06/12/17 14:45 97.5 F L 88 8 147/84 97 06/12/17 14:15 98 F 66 12 133/64 100 06/12/17 14:05 98 F 71 12 119/61 100 06/12/17 13:55 69 12 131/68 100 06/12/17 13:45 85 12 126/72 99 06/12/17 13:35 97.2 F L 82 10 129/71 99 06/12/17 13:25 65 10 126/66 94 06/12/17 13:15 77 10 128/74 94 06/12/17 13:05 97.1 F L 59 12 108/64 93 06/12/17 12:55 62 16 129/72 98 06/12/17 12:45 70 16 121/62 97 06/12/17 12:35 98.5 F 73 16 117/65 98 06/12/17 08:01 98.0 F 91 18 133/68 96 Intake and Output 06/12/17 06/12/17 06/13/17 15:59 23:59 07:59 Intake Total 0 / 0 50 / 50 1000 / 1000 Output Total 300 / 300 200 / 200 Balance -300 / -300 50 / 50 800 / 800 Intake: IV Fluids 50 / 50 1000 / 1000 Lactated Ringers 1,000 ML @ 75 1000 / 1000 mls/hr IVC .[id number] LUIZ Rx#: [id number] Ancef Premix DUPLEX 2,000 mg In 50 / 50 50 ml @ 100 mls/hr IVPB Q8HR [facility] Rx#:[id number] Oral 0 / 0 Output: Urine 200 / 200 Estimated Blood Loss 300 / 300 Other: # Voids 1 Weight 83.461 kg 84.3 kg Blood Glucose* 190 272 Patient Weight 06/13/17 23:59 Weight 84.3 kg - Labs CBC & BMP: 06/13/17 03:17 06/13/17 03:17 Labs: Abnormal lab results Hgb 11.2 g/dL (11.5-15.4) L 06/13/17 03:17 Hct 34.7 % (35.3-44.9) L 06/13/17 03:17 Glucose 202 mg/dL (70-99) H 06/13/17 03:17 POC Glucose 178 (58-89) H 06/12/17 07:59 Calcium 8.5 mg/dL (8.6-10.8) L 06/13/17 03:17 Albumin 3.4 g/dL (3.5-5.0) L 06/12/17 14:00 - VTE Documentation of Mechanical Device: Venous foot pump, device Consult Discharge Plan - Plan Referrals: Sawyer Ha DO [Primary Care Provider] -
[2017-06-13] MEDS: Pyridoxine (B-6) 50 MG TABLET PO SCH (08:42)
[2017-06-13] MEDS: Cholecalciferol (D-3) 1,000 UNIT TABLET PO SCH (08:42)
[2017-06-13] MEDS: Fish Oil 1,000 Mg Softgel PO SCH (08:42)
[2017-06-13] MEDS: *HR* GlipiZIDE XL (24 HR) 10 MG TABLET PO SCH (08:42)
[2017-06-13] MEDS: Multivit/Ca/Min/Fe/FA 1 TAB TABLET PO SCH (08:43)
[2017-06-13] MEDS: Ascorbic Acid 500 MG TABLET PO SCH ×2 (08:43→18:14)
[2017-06-13] MEDS: Cyanocobalamin (B-12) 1,000 MCG TABLET PO SCH (08:43)
[2017-06-13] MEDS: Losartan/HCTZ 50-12.5 TABLET PO SCH (08:43)
[2017-06-13] MEDS: Insulin LISPRO 300 UNITS/3 ML VIAL SQ SCH ×4 (08:43→21:46)
--- NOTE | 2017-06-13 10:06 | Cardiology Progress Note ---
Date of Encounter: 06/13/17 Time of Encounter: 10:03 Assessment and Plan (1) Rate-dependent bundle branch block Current Visit: Yes Status: Acute Explanation for differing complexes on telemetry is rate dependent LBBB s/p hip replacement. Pt denies cardiac hx or any current cardiac symptoms. Risk factors include HTN, HLD, DM. Troponins negative x 2. Echo resulted. LVEF 70%, Normal LV chamber size and function, Mild concentric left ventricular hypertrophy, Atypical septal motion consistent with bundle branch block, Indeterminate diastolic function, Normal right ventricular structure and function, No evidence of pulmonary hypertension, No significant valvular dysfunction. Cardiology signing off. Reconsult PRN. Discussion w patient/family: The assessment and plan as outlined above was discussed with the patient and/or family members who expressed understanding and agreement. All questions were answered. Thank you for involving us in the care of your patient. Please call with any questions. I will discuss all the above with Dr. Adams and make changes as necessary. Subjective Principal diagnosis: Rate dependent BBB Interval history: Pt denies any cardiac complaints this AM. Troponin negative x 2. Echo resulted. LVEF 70%, Normal LV chamber size and function, Mild concentric left ventricular hypertrophy, Atypical septal motion consistent with bundle branch block, Indeterminate diastolic function, Normal right ventricular structure and function, No evidence of pulmonary hypertension, No significant valvular dysfunction. Objective Vital Signs, Last 4 Hours Temp Pulse Resp BP Pulse Ox 06/13/17 06:28 98.5 F 73 18 105/63 93 Vital Signs Temp Pulse Resp BP Pulse Ox 06/13/17 06:28 98.5 F 73 18 105/63 93 06/13/17 05:23 75 111/68 06/13/17 04:18 98.3 F 76 16 99/56 96 06/13/17 00:07 98.0 F 88 16 132/74 94 06/12/17 20:30 98.3 F 85 18 111/60 96 06/12/17 18:57 97.8 F 80 16 98/63 100 06/12/17 17:00 97.5 F L 90 10 97/53 97 06/12/17 15:45 90 12 102/69 100 06/12/17 15:15 97.5 F L 90 10 116/73 99 06/12/17 14:45 97.5 F L 88 8 147/84 97 06/12/17 14:15 98 F 66 12 133/64 100 06/12/17 14:05 98 F 71 12 119/61 100 06/12/17 13:55 69 12 131/68 100 06/12/17 13:45 85 12 126/72 99 06/12/17 13:35 97.2 F L 82 10 129/71 99 06/12/17 13:25 65 10 126/66 94 06/12/17 13:15 77 10 128/74 94 06/12/17 13:05 97.1 F L 59 12 108/64 93 06/12/17 12:55 62 16 129/72 98 06/12/17 12:45 70 16 121/62 97 06/12/17 12:35 98.5 F 73 16 117/65 98 Intake and Output 06/12/17 06/13/17 06/13/17 23:59 07:59 15:59 Intake Total 50 / 50 1000 / 1000 120 / 120 Output Total 200 / 200 Balance 50 / 50 800 / 800 120 / 120 Intake: IV Fluids 50 / 50 1000 / 1000 Lactated Ringers 1,000 ML @ 75 1000 / 1000 mls/hr IVC .[id number] LUIZ Rx#: [id number] Ancef Premix DUPLEX 2,000 mg In 50 / 50 50 ml @ 100 mls/hr IVPB Q8HR LUIZ Rx#:[id number] Oral 120 / 120 Output: Urine 200 / 200 Other: Meal Breakfast Percent of Meal Consumed 10% # Voids 1 Weight 84.3 kg Blood Glucose* 272 205 Patient Weight 06/13/17 23:59 Weight 84.3 kg General: Conversant, No Apparent Distress HEENT: Atraumatic, Normocephaly, Mucus Membranes Moist Neck: No JVD, Normal carotid pulses Cardiac: Reg Rate and Rhythm, Normal S1 and S2, No Murmur Lungs: Normal Breath Sounds, No Wheeze, Rales, Rhonchi Neuro: Alert and responsive, No focal deficits noted Abdomen: Soft, Non-Tender Skin: No rashes noted on visualized skin Musculoskeletal: No Chest Wall Tenderness Extremities: No Clubbing, No Cyanosis, No Edema, Normal Pulses Results 06/13/17 03:17 06/13/17 03:17 Lab Results 06/12/17 06/12/17 06/12/17 12:42 14:00 14:00 Hgb 11.2 L Hct 34.0 L Sodium 138 Potassium 3.6 Chloride 104 Carbon Dioxide 25 BUN 13 Creatinine 0.80 Glucose 240 H Calcium 8.7 Magnesium 2.0 Total Bilirubin 0.8 AST 16 ALT 16 Alkaline Phosphatase 73 Troponin I 0.01 06/12/17 06/13/17 06/13/17 16:17 03:17 03:17 Hgb 11.2 L Hct 34.7 L Sodium 139 Potassium 4.0 Chloride 102 Carbon Dioxide 29 BUN 16 Creatinine 0.82 Glucose 202 H Calcium 8.5 L Magnesium Total Bilirubin AST ALT Alkaline Phosphatase Troponin I 0.00 Short CBC 06/13/17 06/12/17 Range/Units 03:17 12:42 Hgb 11.2 L 11.2 L (11.5-15.4) g/dL Hct 34.7 L 34.0 L (35.3-44.9) % BMP 06/13/17 06/12/17 Range/Units 03:17 14:00 Sodium 139 138 (136-145) mEq/L Potassium 4.0 3.6 (3.5-4.5) mEq/L Chloride 102 104 (98-109) mEq/L Carbon Dioxide 29 25 (19-29) mEq/L BUN 16 13 (7-20) mg/dL Creatinine 0.82 0.80 (0.57-1.11) mg/dL Glucose 202 H 240 H (70-99) mg/dL Calcium 8.5 L 8.7 (8.6-10.8) mg/dL Cardiac Enzymes 06/12/17 06/12/17 Range/Units 16:17 14:00 Troponin I 0.00 0.01 (0-0.03) ng/mL Liver Function 06/12/17 Range/Units 14:00 Total Bilirubin 0.8 (0.2-1.2) mg/dL AST 16 (5-34) Units/L ALT 16 (0-55) Units/L Alkaline Phosphatase 73 (38-126) Units/L Albumin 3.4 L (3.5-5.0) g/dL Impressions Hip X-Ray 06/12/17 00:01 IMPRESSION: 1. Status post left hip arthroplasty with expected postsurgical changes including subcutaneous gas. No immediate complication. D/ / 06/12/2017 15:26:16 Catherine Barnett MD / [email or web address] Interpreting Provider: Catherine Barnett MD Echocardiogram 06/12/17 14:27 Impressions: LVEF 70%. Normal LV chamber size and function. Mild concentric left ventricular hypertrophy. Atypical septal motion consistent with bundle branch block. Indeterminate diastolic function. Normal right ventricular structure and function. No evidence of pulmonary hypertension. No significant valvular dysfunction. Left Ventricular Wall Motion: Rest Echo Findings All wall segments showed normal motion. Findings: Study Quality * Technically adequate exam. ECG Findings * Sinus rhythm with BBB. Left Ventricle * LVEF 70%. * Normal LV chamber size and function. * Mild concentric left ventricular hypertrophy. * Atypical septal motion consistent with bundle branch block. * Indeterminate diastolic function. Right Ventricle * Normal right ventricular structure and function. Left Atrium * Mildly dilated left atrium. Right Atrium * Normal right atrial size. Interatrial Septum * Interatrial septum not well evaluated. Aortic Valve * Aortic valve not well visualized. * Grossly, there appears to be mild calcification. * No aortic regurgitation. * No aortic stenosis. Mitral Valve * Mildly thickened and calcified mitral valve leaflets. * No mitral regurgitation. * No mitral stenosis. Tricuspid Valve * Normal tricuspid valve structure and function. * Trace tricuspid regurgitation. * No evidence of pulmonary hypertension. Pulmonic Valve * Pulmonic valve is not well visualized. * No pulmonic regurgitation. Aorta * Normally sized aortic root. Pericardium * The pericardium appears normal. IVC * The IVC is not well evaluated. Pulmonary Artery * Normal visualized portions of the main pulmonary artery. Active Medications Ascorbic Acid (Vitamin C) 500 mg PO BIDWM [facility] Stop: 12/12/17 17:01 Last Admin: 06/13/17 08:43 Dose: 500 mg Cyanocobalamin (Vitamin B12) 1,000 mcg PO DAILY [facility]UIZ Stop: 12/12/17 14:46 Last Admin: 06/13/17 08:43 Dose: 1,000 mcg Dextrose/Water (Dextrose 50% (Syg)) 25 ml IVP AD PRN PRN Reason: Hypoglycemia Stop: 12/12/17 14:46 Docusate Sodium (Colace) 100 mg PO BID LUIZ PRN Reason: Protocol Stop: 12/12/17 14:46 Last Admin: 06/13/17 08:42 Dose: 100 mg Enoxaparin Sodium (Lovenox) 30 mg SQ Q12HR LUIZ PRN Reason: Protocol Stop: 12/12/17 18:01 Last Admin: 06/13/17 05:13 Dose: 30 mg Ferrous Sulfate (Ferrous Sulfate) 325 mg PO BIDWM [facility] Stop: 12/12/17 17:01 Last Admin: 06/13/17 08:43 Dose: 325 mg Glipizide (Glucotrol Xl) 10 mg PO DAILY [facility] Stop: 12/12/17 14:46 Last Admin: 06/13/17 08:42 Dose: 10 mg Glucagon (Glucagen) 1 mg IM ONCE PRN PRN Reason: Hypoglycemia Stop: 12/12/17 14:46 Glucose (Gluctose) 15 gm PO ONCE PRN PRN Reason: Hypoglycemia Stop: 12/12/17 14:46 Glucose (Gluctose) 30 gm PO ONCE PRN PRN Reason: Hypoglycemia Stop: 12/12/17 14:46 HCTZ/Losartan Potassium (Hyzaar 50/12.5) 1 each PO DAILY [facility] Stop: 12/12/17 14:46 Last Admin: 06/13/17 08:43 Dose: 1 each Hydromorphone HCl (Dilaudid) 1 mg IVP Q2H PRN PRN Reason: Moderate to Severe Pain Stop: 12/12/17 14:46 Dextrose (Dextrose 5%) 1,000 mls @ 100 mls/hr IVC .Q10H PRN PRN Reason: HYPOGLYCEMIA Stop: 12/12/17 14:46 Lactated Ringer's (Lactated Ringers) 1,000 mls @ 75 mls/hr IVC .[id number] [facility] Stop: 12/12/17 14:46 Last Admin: 06/13/17 05:15 Dose: 75 mls/hr Insulin Human Lispro (Humalog) 0 units SQ TIDAC LUIZ PRN Reason: Protocol Stop: 12/12/17 14:46 Last Admin: 06/13/17 08:43 Dose: 6 units Insulin Human Lispro (Humalog) 0 units SQ HS LUIZ PRN Reason: Protocol Stop: 12/12/17 21:01 Last Admin: 06/12/17 21:14 Dose: 6 units Magnesium Hydroxide (Milk Of Magnesia Conc) 5 ml PO HS PRN PRN Reason: Constipation Stop: 12/12/17 14:46 Multivitamins/Calcium (Thera M Plus) 1 tab PO DAILY LUIZ PRN Reason: Protocol Stop: 12/12/17 14:46 Last Admin: 06/13/17 08:43 Dose: 1 tab Naloxone HCl (Narcan) 0.4 mg IVP Q2MIN PRN PRN Reason: SEE COMMENTS Stop: 12/12/17 14:46 Ondansetron HCl (Zofran) 4 mg IVP Q6HR PRN PRN Reason: Nausea And Vomiting Stop: 12/12/17 14:46 Oxycodone HCl (Roxicodone) 5 mg PO Q4HR PRN PRN Reason: Mild pain 1-3 Stop: 12/12/17 14:46 Oxycodone HCl (Roxicodone) 10 mg PO Q4HR PRN PRN Reason: Moderate pain 4-6 Stop: 12/12/17 14:46 Last Admin: 06/13/17 05:13 Dose: 10 mg Pharmacy Profile Note (Patient Taking Own Medication) 1 each PO DAILY LUIZ Stop: 12/12/17 14:46 Last Admin: 06/13/17 08:42 Dose: Not Given Pyridoxine HCl (Vitamin B-6) 250 mg PO DAILY [facility]UIZ Stop: 12/12/17 14:46 Last Admin: 06/13/17 08:42 Dose: 250 mg Senna (Senna) 17.2 mg PO HS PRN PRN Reason: Constipation Stop: 12/12/17 14:46 Temazepam (Restoril) 15 mg PO HS PRN; Protocol PRN Reason: Insomnia Stop: 12/12/17 14:46 Vitamin D (Vitamin D) 1,000 unit PO DAILY LUIZ Stop: 12/12/17 14:46 Last Admin: 06/13/17 08:42 Dose: 1,000 unit - Imaging and Cardiology Echo: report reviewed - EKG Interpretation EKG results cardiology: other (12 hr tele AVG HR 78, rate dependent LBBB.) - VTE Documentation of Mechanical Device: Intermittent pneumatic compression device Consult Discharge Plan - Plan Instructions: Heart Block (GEN) Additional Instructions: Discharge Instructions: Total Hip Replacement Please call [facility] ([phone]), your Primary Care Physician, or report to the Emergency Room if you have any of the following symptoms: Nausea, vomiting, fever greater that 101.5, swelling, chest pain, shortness of breath, increased pain/redness/drainage/odor for your incision site, numbness/ tingling, or any other concerning symptoms. ACTIVITY:Weight-bearing as tolerated for 8 weeks with hip dislocation precautions that physical therapy taught you. You may progress as tolerated under the guidance of your physical therapist. You do not need to sleep with a pillow between your legs. You can also seep on the operative side or on your stomach. MEDICATIONS: Upon discharge resume your home medications. Take all the medications as prescribed. Take a stool softener if taking narcotic pain medications. Stool softeners are only effective if you drink enough fluids. Drink 6-8 glass of water or fluids a day, unless this is not allowed for another health problem. Despite using stool softeners, if you haven't had a bowel movement in 3 days, please switch to a gentle laxative. Gentle laxatives are sold over the counter. You should have a bowel movement within 24 hours, if not call the office. You will be discharged from the hospital with a prescription for pain medication. You are encouraged to decrease the use of narcotic pain medication as tolerated. Should you require a refill, please call the office. [facility] prescribes narcotic pain medication for only 4-6 weeks after surgery. If you require pain medication beyond this time period, you may be referred to your Primary Care Physician or to the Pain Clinic for further evaluation. Plan ahead for refills on pain medication as many narcotics either need to be picked up at the office or mailed. It is best to call 48-72 hours in advance of needing a prescription refill so you don't run out of medication. To help control the post-operative pain, you may take NSAIDs (Aleve,Advil, Motrin, ibuprofen, naprosyn) or Tylenol as prescribed on the bottle in addition to the pain medication. ANTICOAGULATION (blood thinners): Continue your Aspirin, Lovenox or Coumadin as prescribed to help prevent a blood clot in the leg or in the lungs. As long as your incision remains dry and you tolerate the NSAIDs (Aleve, Advil, Motrin, Ibuprofen, Naprosyn), it is OK to use the NSAIDS while you are taking your anticoagulation medication. Should your incision start to drain, stop the NSAID and contact our office. Common symptoms of blood clot in the legs include: localized pain, swelling, calf tenderness, redness or discoloration of the skin. Blood clot in the lung symptoms include: shortness of breath, rapid pulse, sweating, and chest pain that worsens with deep breathing, coughing up blood, lightheadedness, feelings of anxiety. If you experience any of these symptoms notify your physician immediately, go to the emergency room, or if having trouble breathing, call 911. WOUND CARE: Leave the dressing on for 7 to 10days. You may change the dressing if it is saturated greater than 50%. Do not get the dressing wet at anytime. Wash your hands with antibacterial soap, rinse and dry prior to any wound care. If you have felton the visiting nurse or rehab facility can remove the stapes 10-14 days after surgery and place steri-strips across the wound. Leave the steri-strips in place until they fall off on their own. You may let water from the shower run on top of the steri-strips. If you do not have a visiting nurse or rehab facility, you will need to return to the office at 10-14 days for the felton to be removed. If you have itching or redness around the dressing call the office. FOLLOW-UP: Please follow up with your surgeon in the orthopedic clinic in 6 weeks from the day of surgery. If you have felton that need to be removed, you will need to come back to the office in 10-14 days from the day of surgery. Referrals: Jodie Posadas PAC [Physician Manager Site] - Олег Pulido MD [Partnered Physician] - Sawyer Ha DO [Primary Care Provider] -
--- NOTE | 2017-06-13 18:05 | Physician Discharge Referral ---
ExtendedCare Referral Info Transfer To: [facility] Provider in Charge: Dr. Олег Pulido - Diagnosis (1) Arthritis of left hip Priority: Primary Status: Chronic (2) Status post total hip replacement, left Priority: Primary Status: Acute (3) Hypertension Priority: Secondary Status: Chronic (4) Hyperlipidemia Priority: Secondary Status: Chronic (5) Diabetes type 2, controlled Priority: Secondary Status: Chronic (6) Rheumatoid arthritis Priority: Secondary Status: Chronic (7) Obesity (BMI 30.0-34.9) Priority: Secondary Status: Chronic (8) Rate-dependent bundle branch block Priority: Secondary Status: Acute Expected Duration of Placement: less than 30 days Prognosis: Good Aware of Diagnosis: Patient Aware of Prognosis: Patient - Transfer Medications Home Medications: Aspirin Enteric Coated [Aspirin EC] 325 mg PO DAILY #21 tablet. 06/11/17 [Rx] OxyCODONE Immed Rel [Roxicodone 5 MG] 5 mg PO Q6HR PRN #28 tablet 06/11/17 [Rx] Cholecalciferol (D-3) [Vitamin D] 1,000 unit PO DAILY 06/12/17 [History] Cyanocobalamin (Vitamin B-12) [Vitamin B12] 1,000 mcg PO DAILY 06/12/17 [History ] GlipiZIDE [Glipizide ER] 10 mg PO DAILY 06/12/17 [History] Ibuprofen [Motrin] 400 mg PO Q6H PRN 06/12/17 [History] Losartan/HCTZ [Hyzaar 50-12.5 Tablet] 1 tab PO DAILY 06/12/17 [History] [place]-3/Dha/Epa/Fish Oil [Fish Oil 1,000 mg Softgel] 1 tab PO DAILY 06/12/17 [ History] Pyridoxine HCl [Vitamin B-6] 250 mg PO DAILY 06/12/17 [History] Allergies/Adverse Reactions: 3 Allergy/AdvReac Type Severity Reaction Status Date / Time acetaminophen [From Tylenol] Allergy Hives Verified 06/12/17 08:04 ezetimibe [From Zetia] Allergy Muscle Pain Verified 06/12/17 08:04 ibuprofen [From Advil] Allergy Hives Verified 06/12/17 08:04 - Respiratory Orders Smoking Cessation: Smoking cessation has been advised. For more information, call the [place] [employer] Quit Line at 8-547-KOTQ-NOW. - Ancillary Orders May use pressure relief devices daily prn, May go on SOPHIE w/family/respon alliance party w /meds at nurse discretion PRN, May consult with Dentist, Development Scientist, Mma Fighter PRN - Mobility Orders Chair, Ambulate - Rehabiliation Orders Rehab Potential: Good Rehab Orders: Evaluation for Physical Therapy, Evaluation for Occupational Therapy Other: Total Hip Replacement Precautions Apply cold therapy 3-6x/day for 20 minutes at a time. Encourage ambulation throughout the day and incentive spirometer 10x/hour. Elevate affected extremity as tolerated. Brace: Wear hip abduction pillow when laying/sleeping - Treatments Skin tear care topically daily PRN per policy List/Other: Zipline skin closure and Honeycomb opsite placed. Keep dressing intact until first follow up appointment. If > 50% saturated, notify office, remove Opsite dressing and place appropriate occlusive dressing back in place. Opsite dressing is water resistant, not water-proof. OK to shower, but do not get dressing wet. - Diet Orders Regular CERTIFICATION: I certify that the transfer of the above named patient to an Extended Care Facility is necessary for the continuing treatment of the diagnosis listed. The above information is true and accurate reflection of patient's current condition. Confidential - Redisclosure prohibited without a patient's written consent.
[2017-06-14 04:19] LABS: Hemoglobin 10.3 g/dL (11.5-15.4)
[2017-06-14 04:39] LABS: BUN/Creatinine Ratio 19 (6-26); Blood Urea Nitrogen 16 mg/dL (7-20); Calcium 8.8 mg/dL (8.6-10.8); Carbon Dioxide 26 mEq/L (19-29); Chloride 99 mEq/L (98-109); Glucose 162 mg/dL (70-99); Osmolality,Calculated 285 (280-300); Potassium 3.7 mEq/L (3.5-4.5); Sodium 135 mEq/L (136-145); eGFR For African Americans > 60 (> 60); eGFR For Non-African Americans > 60 (> 60)
[2017-06-14] MEDS: *HR* Enoxaparin 30 MG/0.3 ML SYRINGE SQ SCH (05:09)
[2017-06-14] MEDS: *HR* OxyCODONE Immed Rel 5 MG TABLET PO PRN ×2 (05:12→12:45)
[2017-06-14] MEDS: Cyanocobalamin (B-12) 1,000 MCG TABLET PO SCH (08:09)
[2017-06-14] MEDS: Pyridoxine (B-6) 50 MG TABLET PO SCH (08:09)
[2017-06-14] MEDS: Ascorbic Acid 500 MG TABLET PO SCH (08:10)
[2017-06-14] MEDS: Multivit/Ca/Min/Fe/FA 1 TAB TABLET PO SCH (08:10)
[2017-06-14] MEDS: *HR* GlipiZIDE XL (24 HR) 10 MG TABLET PO SCH (08:10)
[2017-06-14] MEDS: Losartan/HCTZ 50-12.5 TABLET PO SCH (08:10)
[2017-06-14] MEDS: Cholecalciferol (D-3) 1,000 UNIT TABLET PO SCH (08:10)
[2017-06-14] MEDS: Insulin LISPRO 300 UNITS/3 ML VIAL SQ SCH (08:11)
--- NOTE | 2017-06-14 08:45 | Orthopedics Progress Note ---
Date of Encounter: 06/14/17 Time of Encounter: 08:44 - Assessment and Plan (1) Arthritis of left hip Current Visit: No Status: Chronic (2) Status post total hip replacement, left Current Visit: No Status: Acute (3) Hypertension Current Visit: Yes Status: Chronic Qualifiers: Hypertension type: unspecified secondary hypertension Qualified Code(s): I15.9 - Secondary hypertension, unspecified; I15 - Secondary hypertension (4) Hyperlipidemia Current Visit: Yes Status: Chronic Qualifiers: Hyperlipidemia type: unspecified Qualified Code(s): E78.5 - Hyperlipidemia , unspecified (5) Diabetes type 2, controlled Current Visit: Yes Status: Chronic Qualifiers: Diabetes mellitus complication status: with unspecified complications Diabetes mellitus station repairer insulin use: unspecified station repairer insulin use status Qualified Code(s): E11.8 - Type 2 diabetes mellitus with unspecified complications (6) Rheumatoid arthritis Current Visit: Yes Status: Chronic Qualifiers: Rheumatoid arthritis location: unspecified site Rheumatoid factor presence : unspecified presence Qualified Code(s): M06.9 - Rheumatoid arthritis, unspecified (7) Obesity (BMI 30.0-34.9) Current Visit: Yes Status: Chronic (8) Rate-dependent bundle branch block Current Visit: Yes Status: Acute Subjective Principal diagnosis: Rate dependent BBB Interval history: Patient was seen this morning doing well without complaints. Afebrile vital signs stable. Operative extremity: Neurovascularly intact Dressing clean dry and intact Calves nontender Assessment and plan: Continue with postoperative care Hematocrit 31 discharged today if placement accomplished or home Objective Vital signs: Vital Signs Temp Pulse Resp BP Pulse Ox 06/14/17 07:26 99.1 F 88 16 113/63 95 06/14/17 04:45 98.5 F 108 16 116/74 92 06/13/17 23:23 98.1 F 72 16 110/70 90 06/13/17 19:20 98.8 F 79 17 108/68 98 06/13/17 15:04 98.7 F 73 18 97/62 98 06/13/17 11:33 98.5 F 77 18 112/68 93 Intake and Output 06/13/17 06/14/17 06/14/17 23:59 07:59 15:59 Intake Total 1350 / 1350 150 / 150 Output Total 850 / 850 450 / 450 Balance 500 / 500 -300 / -300 Intake: IV Fluids 1000 / 1000 Lactated Ringers 1,000 ML @ 75 1000 / 1000 mls/hr IVC .[id number] Rx#: [id number] Oral 350 / 350 150 / 150 Output: Urine 850 / 850 450 / 450 Other: # Voids 2 Blood Glucose* 150 156 - Labs CBC & BMP: 06/14/17 03:50 06/14/17 03:50 Labs: Abnormal lab results Hgb 10.3 g/dL (11.5-15.4) L 06/14/17 03:50 Hct 31.0 % (35.3-44.9) L 06/14/17 03:50 Sodium 135 mEq/L (136-145) L 06/14/17 03:50 Glucose 162 mg/dL (70-99) H 06/14/17 03:50 POC Glucose 156 (58-89) H 06/14/17 07:30 Albumin 3.4 g/dL (3.5-5.0) L 06/12/17 14:00 - VTE Documentation of Mechanical Device: Venous foot pump, device Consult Discharge Plan - Plan Instructions: Heart Block (GEN) Additional Instructions: Discharge Instructions: Total Hip Replacement Please call [facility] ([phone]), your Primary Care Physician, or report to the Emergency Room if you have any of the following symptoms: Nausea, vomiting, fever greater that 101.5, swelling, chest pain, shortness of breath, increased pain/redness/drainage/odor for your incision site, numbness/ tingling, or any other concerning symptoms. ACTIVITY:Weight-bearing as tolerated for 8 weeks with hip dislocation precautions that physical therapy taught you. You may progress as tolerated under the guidance of your physical therapist. You do not need to sleep with a pillow between your legs. You can also seep on the operative side or on your stomach. MEDICATIONS: Upon discharge resume your home medications. Take all the medications as prescribed. Take a stool softener if taking narcotic pain medications. Stool softeners are only effective if you drink enough fluids. Drink 6-8 glass of water or fluids a day, unless this is not allowed for another health problem. Despite using stool softeners, if you haven't had a bowel movement in 3 days, please switch to a gentle laxative. Gentle laxatives are sold over the counter. You should have a bowel movement within 24 hours, if not call the office. You will be discharged from the hospital with a prescription for pain medication. You are encouraged to decrease the use of narcotic pain medication as tolerated. Should you require a refill, please call the office. [facility] prescribes narcotic pain medication for only 4-6 weeks after surgery. If you require pain medication beyond this time period, you may be referred to your Primary Care Physician or to the Pain Clinic for further evaluation. Plan ahead for refills on pain medication as many narcotics either need to be picked up at the office or mailed. It is best to call 48-72 hours in advance of needing a prescription refill so you don't run out of medication. To help control the post-operative pain, you may take NSAIDs (Aleve,Advil, Motrin, ibuprofen, naprosyn) or Tylenol as prescribed on the bottle in addition to the pain medication. ANTICOAGULATION (blood thinners): Continue your Aspirin, Lovenox or Coumadin as prescribed to help prevent a blood clot in the leg or in the lungs. As long as your incision remains dry and you tolerate the NSAIDs (Aleve, Advil, Motrin, Ibuprofen, Naprosyn), it is OK to use the NSAIDS while you are taking your anticoagulation medication. Should your incision start to drain, stop the NSAID and contact our office. Common symptoms of blood clot in the legs include: localized pain, swelling, calf tenderness, redness or discoloration of the skin. Blood clot in the lung symptoms include: shortness of breath, rapid pulse, sweating, and chest pain that worsens with deep breathing, coughing up blood, lightheadedness, feelings of anxiety. If you experience any of these symptoms notify your physician immediately, go to the emergency room, or if having trouble breathing, call 911. WOUND CARE: Leave the dressing on for 7 to 10days. You may change the dressing if it is saturated greater than 50%. Do not get the dressing wet at anytime. Wash your hands with antibacterial soap, rinse and dry prior to any wound care. If you have felton the visiting nurse or rehab facility can remove the stapes 10-14 days after surgery and place steri-strips across the wound. Leave the steri-strips in place until they fall off on their own. You may let water from the shower run on top of the steri-strips. If you do not have a visiting nurse or rehab facility, you will need to return to the office at 10-14 days for the felton to be removed. If you have itching or redness around the dressing call the office. FOLLOW-UP: Please follow up with your surgeon in the orthopedic clinic in 6 weeks from the day of surgery. If you have felton that need to be removed, you will need to come back to the office in 10-14 days from the day of surgery. Referrals: Jodie Posadas PAC [Physician Small Machine Bindery Operator] - Олег Pulido MD [Partnered Physician] - Sawyer Ha DO [Primary Care Provider] -
[2017-06-14] MEDS: Fish Oil 1,000 Mg Softgel PO SCH (10:52)
[2017-06-14 11:09] VITALS: BP 126/57
[2017-06-14] MEDS ORDERED: FLUARIX QUAD 2017-18 36MOS UP/PF 0.5 ML SYRINGE IM ONE (11:17)
== END 2017-06-14 13:12 | DRG 470 ==
LOC: SAMDAY 07:33 → 3NENU 14:41
PROVIDERS: ADMIT Orthopaedic Surgery; ATTEND Orthopaedic Surgery